=== PATIENT | male | born 1940 | race Caucasian/White ===

== ENCOUNTER 2018-12-22 01:54 | Outpatient (CLI) | payer MEDICARE, OTHER, SELFPAY ==
[2018-12-22 11:13] LABS: ALT 28 U/L (12-78); AST 16 U/L (15-37); Albumin 4.1 g/dL (3.4-5.0); Alkaline Phosphatase 95 U/L (46-116); BUN 13 mg/dL (7-18); Bilirubin, Total 0.7 mg/dL (0.2-1.0); CREATININE 1.55 mg/dL (0.70-1.30); Calcium 9.1 mg/dL (8.5-10.1); Chloride 104 mmol/L (98-107); Cholesterol 196 mg/dL (50-200); Estimated GFR 43.81 (mL/min/1.73m2); Glucose 101 mg/dL (70-100); HDL Cholesterol 39 mg/dL (40-60); LDL CHOLESTEROL 110 mg/dL (<100); Potassium 4.2 mmol/L (3.5-5.1); Sodium 141 mmol/L (136-145); Total Protein 7.5 g/dL (6.4-8.2); Triglyceride 302 mg/dL (30-150)
== END 2018-12-22 02:14 ==
PROVIDERS: PCP Family Medicine; Visit Provider Family Medicine
DX: E78.5 Hyperlipidemia, unspecified (principal)
CPT/HCPCS: 36415; 80053; 80061; 83721

== ENCOUNTER 2019-01-06 00:25 | Outpatient (CLI) | payer MEDICARE, OTHER, SELFPAY ==
[2019-01-06 14:19] LABS: CREATININE 1.55 mg/dL (0.70-1.30); Estimated GFR 43.81 (mL/min/1.73m2)
--- NOTE | 2019-01-06 15:50 | DI.US_ITS ---
SYMPTOM/DIAGNOSIS: TIA, G45.9, DIZZINESS, SYNCOPE, SMOKER BILATERAL DUPLEX CAROTID ULTRASOUND: Duplex evaluation of the carotid circulation was performed according to the usual protocol. There is mild visible atheromatous plaque in the carotid bifurcations. There is normal flow velocity in common, internal and external carotid arteries bilaterally. There is bilateral antegrade vertebral flow. CONCLUSION: No evidence of a hemodynamically significant carotid stenosis.
--- NOTE | 2019-01-06 16:05 | DI.CT_ITS ---
SYMPTOM/;DIAGNOSIS: SLURRED SPEECH, TIA, R47.81, DIZZINESS CRANIAL CT: Cranial CT was performed prior to and following intravenous infusion of 50 cc's of Omnipaque 350. There is mild generalized cerebral atrophy. There is no evidence of acute intracranial hemorrhage, mass effect or midline shift. Post contrast examination shows no evidence of an intracranial mass lesion or enhancing lesion and shows unremarkable appearance of the [place] vasculature as visualized. Paranasal sinuses and mastoid air cells are well aerated. Orbital and temporal bone structures appear intact. CONCLUSION: Negative cranial CT for age.
[2019-01-06] MEDS: Omnipaque 350 MG/ML 100 ML BTL 50 ML IJ (16:06)
== END 2019-01-06 00:45 ==
PROVIDERS: PCP Family Medicine; Visit Provider Family Medicine
DX: R47.81 Slurred speech (principal); R42 Dizziness and giddiness; G31.1 Senile degeneration of brain, not elsewhere classified
CPT/HCPCS: 70470; 82565; 93880; J3490

== ENCOUNTER 2019-01-12 00:30 | Outpatient (CLI) | payer MEDICARE, OTHER, SELFPAY ==
--- NOTE | 2019-01-12 07:30 | MERGE_ITS ---
*[facility]* *[facility]* [address] [place] [address] Date of study: 01/12/2019 Transthoracic Echocardiography M-mode, complete 2D, complete spectral Doppler, and color Doppler *STUDY CONCLUSIONS* Summary: 1. Left ventricle: The cavity size was normal. Wall thickness was increased in a pattern of mild LVH. Systolic function was normal. The estimated ejection fraction was 60-65%. Wall motion was normal; there were no regional wall motion abnormalities. 2. Aortic valve: Calcification. Moderate focal calcification involving the noncoronary cusp. There was no stenosis. There was trivial regurgitation. 3. Mitral valve: There was mild regurgitation. 4. Right ventricle: The cavity size was normal. Wall thickness was normal. Systolic function was normal. 5. Atrial septum: No defect or patent foramen ovale was identified. Agitated saline contrast study showed no atrial level shunt, at baseline or with provocation. *PATIENT PRESENTATION* Height: 172.7cm ((68in) ) S/D Pressure: 126 / 65 Weight: 72.6kg ((159.7lb) ) BSA: 1.87m^2 Test start time: 07:30 AM. Test stop time: 07:50 AM. PERFORMING Unknown ORDERING Araceli Reyes REFERRING Araceli Reyes PERFORMING [facility] RN CCU RT Giselle (R)(CT), RADHA *PROCEDURE DATA* Procedure information: The patient was identified by two identifiers. This study was interpreted by [facility]. Pertinent images and digital data are archived for permanent storage and are available for subsequent review. No prior study was available for comparison. Study status: Routine. Transthoracic echocardiography. M-mode, complete 2D, complete spectral Doppler, and color Doppler. A Transthoracic Echocardiogram was performed. Scanning was performed from the parasternal, apical, subcostal, and suprasternal notch acoustic windows. Images were obtained using an [id number] cardiac ultrasound machine. Image quality was adequate. A 20 gauge IV was inserted by FREDDY Duncan. Intravenous contrast (normal saline) was administered. A total amount of 30ml of saline was used. The saline was administered by FREDDY Duncan . Study completion: The patient tolerated the procedure well. There were no complications. History: PMH: TIA G45.9 *CARDIAC ANATOMY* Left ventricle: The cavity size was normal. Wall thickness was increased in a pattern of mild LVH. Systolic function was normal. The estimated ejection fraction was 60-65%. Wall motion was normal; there were no regional wall motion abnormalities. Findings consistent with diastolic dysfunction. Aortic valve: Trileaflet; mildly thickened, mildly calcified leaflets. Calcification. Moderate focal calcification involving the noncoronary cusp. Mobility was not restricted. Doppler: Transvalvular velocity was within the normal range. There was no stenosis. There was trivial regurgitation. VTI ratio of LVOT to aortic valve: 0.84. Valve area (VTI): 2.8cm^2. Indexed valve area (VTI): 1.5cm^2/m^2. Peak velocity ratio of LVOT to aortic valve: 0.72. Valve area (Vmax): 2.4cm^2. Indexed valve area (Vmax): 1.3cm^2/m^2. Mean velocity ratio of LVOT to aortic valve: 0.78. Valve area (Vmean): 2.6cm^2. Indexed valve area (Vmean): 1.4cm^2/m^2. Mean gradient (S): 4.5mm Hg. Peak gradient (S): 8.6mm Hg. Aorta: Aortic root: The aortic root was at upper normal limits. Ascending aorta: The ascending aorta was normal in size. Mitral valve: Mildly thickened leaflets. Mobility was not restricted. Doppler: Transvalvular velocity was within the normal range. There was no evidence for stenosis. There was mild regurgitation. Valve area by pressure half-time: 3cm^2. Indexed valve area by pressure half-time: 1.6cm^2/m^2. Peak gradient (D): 3mm Hg. Left atrium: The atrium was normal in size. Atrial septum: No defect or patent foramen ovale was identified. Agitated saline contrast study showed no atrial level shunt, at baseline or with provocation. Right ventricle: The cavity size was normal. Wall thickness was normal. Systolic function was normal. Pulmonic valve: Structurally normal valve. Doppler: Transvalvular velocity was within the normal range. There was no evidence for stenosis. There was trivial regurgitation. Peak gradient (S): 3.1mm Hg. Tricuspid valve: Structurally normal valve. Doppler: Transvalvular velocity was within the normal range. There was no evidence for stenosis. There was trivial regurgitation. Pulmonary artery: Pulmonary systolic pressure was within the normal range. Right atrium: The atrium was normal in size. Pericardium: There was no pericardial effusion. Systemic veins: Inferior vena cava: Well visualized. The vessel was patent and normal in size. The respirophasic diameter changes were in the normal range (greater than or equal to 50%). Baseline ECG: Normal sinus rhythm. Measurements Left ventricle Value Reference LV ID, ED, PLAX 4.0 cm 3.5 - 6.0 LV ID, ES, PLAX 2.4 cm 2.1 - 4.0 LV PW thickness, ED, PLAX 1.1 cm LV end-diastolic volume, 1-p A2C 79 ml LV ejection fraction, 1-p A2C 72 % LV end-diastolic volume, 1-p A4C 62 ml LV ejection fraction, 1-p A4C 59 % LV e', lateral 0.037 m/sec LV E/e', lateral 24 LV e', medial 0.044 m/sec LV E/e', medial 20 LV e', average 0.04 m/sec LV E/e', average 22 Ventricular septum Value Reference IVS thickness, ED, PLAX 1.2 cm LVOT Value Reference LVOT ID, A-P 2.1 cm LVOT area 3.3 cm^2 LVOT peak velocity, S 1.06 m/sec LVOT mean velocity, S 0.77 m/sec LVOT VTI, S 25.3 cm LVOT peak gradient, S 4.5 mm Hg LVOT mean gradient, S 2.7 mm Hg Stroke volume (SV), LVOT DP 84 ml Stroke index (SV/bsa), LVOT DP 45 ml/m^2 Aortic valve Value Reference Aortic valve peak velocity, S 1.5 m/sec Aortic valve mean velocity, S 1 m/sec Aortic valve VTI, S 30.0 cm Aortic mean gradient, S 4.5 mm Hg Aortic peak gradient, S 8.6 mm Hg VTI ratio, LVOT/AV 0.84 Aortic valve area, VTI 2.8 cm^2 Velocity ratio, peak, LVOT/AV 0.72 Aortic valve area, peak velocity 2.4 cm^2 Velocity ratio, mean, LVOT/AV 0.78 Aortic valve area, mean velocity 2.6 cm^2 Aortic valve area/bsa, mean velocity 1.4 cm^2/m^2 Aorta Value Reference Aortic root ID, ED 3.7 cm Ascending aorta ID, A-P, S 3.5 cm Left atrium Value Reference LA ID, A-P, ES 3.6 cm LA ID/bsa, A-P 1.9 cm/m^2 <=2.2 LA area, ES, A4C 17.1 cm^2 8.8 - 23.4 LA area, ES, A2C 17 cm^2 LA volume/bsa, ES, 1-p A4C 28 ml/m^2 LA volume, ES, 2-p 47 ml LA volume/bsa, ES, 2-p 25 ml/m^2 LA/aortic root ratio 0.96 Mitral valve Value Reference Mitral E-wave peak velocity 0.87 m/sec Mitral A-wave peak velocity 0.96 m/sec Mitral deceleration time (H) 255 ms 150 - 230 Mitral pressure half-time 74 ms Mitral peak gradient, D 3 mm Hg Mitral E/A ratio, peak 0.9 Mitral valve area, PHT, DP 3 cm^2 Pulmonary veins Value Reference Pulmonary vein peak velocity, S 0.71 m/sec Pulmonary vein peak velocity, D 0.56 m/sec Pulmonary vein velocity ratio, peak, 1.27 S/D Pulmonary vein A-wave reversal peak 0.29 m/sec velocity Pulmonary vein A-wave reversal 127 ms duration Tricuspid valve Value Reference Tricuspid regurg peak velocity 2.4 m/sec Tricuspid peak RV-RA gradient 23.9 mm Hg Right atrium Value Reference RA area, ES, A4C 18.8 cm^2 8.3 - 19.5 Pulmonic valve Value Reference Pulmonic peak gradient, S 3.1 mm Hg Legend: (L) and (H) fahad values outside specified reference range. I have personally reviewed the images and have reviewed and edited the reported findings. Electronically signed by Elver Ireland 01/12/2019 17:13
[2019-01-12] MEDS: Normal Saline Flush 10 ML SYR 30 ML IVP (14:28)
== END 2019-01-12 00:50 ==
PROVIDERS: PCP Family Medicine; Visit Provider Family Medicine
DX: I08.0 Rheumatic disorders of both mitral and aortic valves (principal); R47.81 Slurred speech; R42 Dizziness and giddiness; G45.9 Transient cerebral ischemic attack, unspecified
CPT/HCPCS: 93306

== ENCOUNTER 2019-01-25 02:31 | Outpatient (CLI) | payer MEDICARE, OTHER, SELFPAY ==
--- NOTE | 2019-02-15 11:28 | ZIOP_ITS ---
ZIO PATCH MONITOR DATE OF DICTATION February 15, [address] 13 days, 1 hour. January 25 - December 08, 2018. INTERPRETATION Baseline rhythm sinus. Rare single PAC. 8 bursts of SVT, longest 15-beat duration, fastest 152 beats per minute. No atrial f ibrillation. Rare single PVC. Rare couplet. No VT. No bradycardia or block. SYMPTOMS 2 triggered events, both current during sinus rhythm. 86-106 beats per minute. 1 symptomatic event. Confusion, lightheaded, dizziness noted once during sinus rhythm, 81 beats per m inute. Average heart rate sinus, 81 beats per minute, range 48-148 beats per minute. Nishant Turner M.D. NI/dominick T - 02/15/2019
== END 2019-01-25 02:51 ==
PROVIDERS: PCP Family Medicine; Visit Provider Family Medicine
DX: G45.9 Transient cerebral ischemic attack, unspecified (principal); I47.1 Supraventricular tachycardia; I49.1 Atrial premature depolarization; I49.3 Ventricular premature depolarization
CPT/HCPCS: 0296T

== ENCOUNTER 2019-02-15 09:30 | Outpatient (CLI) | payer MEDICARE, OTHER, SELFPAY | END 2019-02-15 09:50 | PROVIDERS: PCP Family Medicine; Referring Provider Family Medicine; Visit Provider Internal Medicine Interventional Cardiology | DX: G45.9 Transient cerebral ischemic attack, unspecified (principal); I47.1 Supraventricular tachycardia; I49.1 Atrial premature depolarization; I49.3 Ventricular premature depolarization | CPT/HCPCS: 0298T ==

== ENCOUNTER 2019-03-02 01:40 | Outpatient (CLI) | payer MEDICARE, OTHER, SELFPAY ==
--- NOTE | 2019-03-02 14:41 | DI.MRI_ITS ---
SYMPTOMS/DIAGNOSIS: RECURRENT TRANSIENT ISCHEMIC ATTACKS ON ASA, Z86.83, G45.9 MR ANGIOGRAPHY, [place]: BRAIN MRI: MRI examination of the brain was performed according to the usual protocol. There is mild generalized cerebral atrophy. There are areas of abnormal signal in periventricular white matter and to a lesser degree the jeronimo consistent with microvascular ischemic change. There are small bilateral lacunar infarcts. No other significant signal abnormality identified in the brain. The orbital and temporal bone structures appear intact, as does the pituitary. There is normal flow void in the [place] vasculature. Diffusion weighted imaging is within normal limits with no evidence of infarct. Susceptibility weighted imaging shows no evidence of intracranial hemorrhage. CONCLUSION: Cerebral atrophy and microvascular ischemic changes of periventricular white matter and pontine white matter. No other significant abnormality seen. MRA BRAIN: The distal internal carotid arteries are unremarkable without evidence of aneurysm, occlusion or significant stenosis. The anterior cerebral arteries are unremarkable without evidence of aneurysm, occlusion or significant stenosis. The middle cerebral arteries are unremarkable without evidence of aneurysm, occlusion or significant stenosis. The posterior cerebral arteries are unremarkable without evidence of aneurysm, occlusion or significant stenosis. The visualized portions of the distal vertebral arteries and basilar artery are unremarkable without evidence of occlusion, aneurysm or significant stenosis. IMPRESSION: Unremarkable MR angiography of the brain.
== END 2019-03-02 02:00 ==
PROVIDERS: PCP Family Medicine; Visit Provider Family Medicine
DX: Z86.73 Personal history of transient ischemic attack (TIA), and cerebral infarction without residual deficits (principal); G45.9 Transient cerebral ischemic attack, unspecified; Z79.82 Long term (current) use of aspirin; G31.1 Senile degeneration of brain, not elsewhere classified; R90.82 White matter disease, unspecified
CPT/HCPCS: 70544; 70551

== ENCOUNTER 2019-03-15 02:17 | Outpatient (CLI) | payer MEDICARE, OTHER, SELFPAY ==
--- NOTE | 2019-04-05 12:02 | ZIOP_ITS ---
DATE OF DICTATION: April 05, 2019 ENROLLMENT: 03/15/19 until 03/28/19 DIAGNOSIS: Transient cerebral ischemic event. PRESCRIBING PHYSICIAN: Araceli Reyes M.D. FINDINGS: 1. Baseline sinus rhythm 52-150 bpm, average 76 bpm. 2. Rare PVC, < 1%, one 7-beat non-sustained VT run, average 155 bpm, maximally 203 bpm. 3. Rare PAC, < 1%, eight SVT runs, fastest 7 beats at 179 bpm, longest 9 beats at 99 bpm. No AF. 4. No bradycardia or pauses. 5. No triggered or symptom events recorded.
== END 2019-03-15 02:37 ==
PROVIDERS: PCP Family Medicine; Visit Provider Family Medicine
DX: G45.9 Transient cerebral ischemic attack, unspecified (principal); I47.2 Ventricular tachycardia; I47.1 Supraventricular tachycardia
CPT/HCPCS: 0296T

== ENCOUNTER → 2019-04-07 10:08 | Outpatient (BNVA) | payer MEDICARE, OTHER, SELFPAY | PROVIDERS: PCP Family Medicine; Referring Provider Family Medicine; Visit Provider Psychiatry & Neurology Neurology | DX: R40.4 Transient alteration of awareness (principal); R68.89 Other general symptoms and signs; R51 Headache | CPT/HCPCS: 99205; 99215 ==

== ENCOUNTER 2019-05-03 01:48 | Outpatient (CLI) | payer MEDICARE, OTHER, SELFPAY ==
--- NOTE | 2019-05-06 15:40 | PDOC.EEG_ITS ---
EEG: [facility] Department of Neurology LONG-TERM AMBULATORY EEG REPORT Date of Recordin05/03/19 at 14:50:22 to 05/06/19at 10:19:55 Interpreting Physician: Dr. Andar Dooley PCP/Referring Provider: Dr. Fatoumata Reyes Reason for study: Mr. 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 Current Medications: Home Medications Medication Instructions Recorded Confirmed Type aspirin [Aspir 81] 81 mg PO DAILY 12/11/12 04/07/19 History diphenhydramine-acetaminophen 1 ea PO HS PRN PRN 10/30/16 04/07/19 History [Tylenol Pm Ex-Strength Caplet] fluocinolone 15 gm TOPICAL BID PRN #1 script 01/17/17 04/07/19 History fluocinonide-emollient [Lidex-E 1 applic TOPICAL QID #60 gm 12/29/17 04/07/19 History 0.05% Cream] paroxetine HCl [Paxil] 20 mg PO DAILY #90 tab 05/04/18 04/07/19 Rx omeprazole 20 mg capsule,delayed 20 mg PO DAILY #90 tab-cap 11/23/18 04/07/19 Rx release sildenafil 100 mg tablet 100 mg PO PRN #12 tab-cap 12/31/18 04/07/19 Rx simvastatin 80 mg tablet 80 mg PO QHS #90 tab 03/01/19 04/07/19 Rx clopidogrel 75 mg tablet 75 mg PO DAILY #90 tab 03/15/19 04/07/19 Rx METHODS: An 18-channel digitized electroencephalogram was recorded in the ambulatory setting with video. The 10/20 international system of electrode placement was used and bipolar and referential electrode montages were recorded. In addition to EEG the patient was monitored for EKG and by video. Activation procedures of photic stimulation and hyperventilation were performed if applicable. The duration of the recording was ~66 hours. DESCRIPTION OF EEG: Waking background activity: During maximal wakefulness a 9-Hz posterior background rhythm was present which was well-modulated, symmetrical, reactive to eye opening, and of moderate voltage. Faster frequencies were present in the bilateral anterior head regions. There was a normal anterior-posterior voltage gradient. Drowsy and sleeping background activity: During drowsiness, there was attenuation of the posterior dominant background rhythm and vertex waves. Normal stage II and III sleep was present with symmetrical sleep spindles, K- complexes, and vertex waves with slowing of the background rhythm to delta/theta frequencies. REM sleep manifested by rapid lateral eye movements and faster background rhythms was recorded. Arousal was unremarkable. He had frequent nocturnal arousals/awakenings. Interictal abnormalities: none. Ictal findings: No events recorded. Activating Procedures: Photic stimulation was performed which produced a symmetrical posterior driving response at various flash frequencies. Hyperventilation was not performed. EKG: EKG revealed normal sinus rhythm. INTERPRETATION: This long-term EEG is normal during the awake and sleep states as well as during the activation procedures. He had frequent nocturnal arousals. No events were captured. PRIOR EEG: none CLINICAL CORRELATION: No focal regions of cerebral dysfunction or epileptiform activity was present. The frequent nocturnal arousals could be indicative of a sleep disorder. Epilepsy remains a clinical diagnosis and a normal EEG does not rule out epi lepsy. Clinical correlation is advised. Andra Dooley MD
== END 2019-05-03 02:08 ==
PROVIDERS: PCP Family Medicine; Visit Provider Psychiatry & Neurology Neurology
DX: R41.89 Other symptoms and signs involving cognitive functions and awareness (principal); R40.4 Transient alteration of awareness; Z86.73 Personal history of transient ischemic attack (TIA), and cerebral infarction without residual deficits
CPT/HCPCS: 95951; 95953

== ENCOUNTER 2019-06-07 01:05 | Outpatient (CLI) | payer MEDICARE, OTHER, SELFPAY ==
[2019-06-07 10:36] LABS: HCT 44.9 % (40.0-50.0); HGB 15.2 g/dL (13.5-17.5); Mean Corp. HGB Concentration 33.9 g/dL (32.0-36.0); Mean Corpuscular Hemoglobin 31.5 pg (27.0-33.0); Mean Corpuscular Volume 93.2 fL (80-95); Mean Platelet Volume 10.2 fL (8.0-11.0); Platelet Count 279 x1000/uL (130-400); RBC 4.82 m/cumm (4.50-6.00); RBC Distribution Width 13.1 % (11.8-14.1); White Blood Cell Count 8.11 k/cumm (4.4-10.8)
[2019-06-07 11:31] LABS: ALT 28 U/L (16-63); AST 18 U/L (15-37); Albumin 4.3 g/dL (3.4-5.0); Alkaline Phosphatase 97 U/L (46-116); Anion Gap 8.2 mmol/L (3-11); BUN 15 mg/dL (7-18); Bilirubin, Total 0.8 mg/dL (0.2-1.0); CO2 26.8 mmol/L (21.0-32.0); CREATININE 1.64 mg/dL (0.70-1.30); Calcium 9.2 mg/dL (8.5-10.1); Calculated LDL 90 mg/dL; Chloride 103 mmol/L (98-107); Cholesterol 192 mg/dL (50-200); Estimated GFR 41.05 (mL/min/1.73m2); Glucose 101 mg/dL (70-100); HDL Cholesterol 38 mg/dL (40-60); Magnesium 2.3 mg/dL (1.8-2.4); Potassium 4.7 mmol/L (3.5-5.1); Sodium 138 mmol/L (136-145); Total Protein 7.6 g/dL (6.4-8.2); Triglyceride 322 mg/dL (30-150)
== END 2019-06-07 01:25 ==
PROVIDERS: PCP Family Medicine; Visit Provider Family Medicine
DX: E78.5 Hyperlipidemia, unspecified (principal); E83.42 Hypomagnesemia; K21.9 Gastro-esophageal reflux disease without esophagitis
CPT/HCPCS: 36415; 80053; 80061; 85027; 83735

== ENCOUNTER 2019-12-07 08:49 | Outpatient (CLI) | payer MEDICARE, OTHER, SELFPAY ==
[2019-12-07 12:48] LABS: ALT 27 U/L (16-63); AST 21 U/L (15-37); Albumin 4.4 g/dL (3.4-5.0); Alkaline Phosphatase 128 U/L (46-116); Anion Gap 12.5 mmol/L (3-11); BUN 17 mg/dL (7-18); Bilirubin, Total 0.6 mg/dL (0.2-1.0); CO2 24.5 mmol/L (21.0-32.0); CREATININE 1.73 mg/dL (0.70-1.30); Chloride 104 mmol/L (98-107); Estimated GFR 38.49 (mL/min/1.73m2); Glucose 126 mg/dL (74-106); Potassium 4.1 mmol/L (3.5-5.1); Sodium 141 mmol/L (136-145); Total Protein 7.8 g/dL (6.4-8.2)
== END 2019-12-07 09:09 ==
PROVIDERS: PCP Family Medicine; Visit Provider Family Medicine
DX: R74.8 Abnormal levels of other serum enzymes (principal); K21.9 Gastro-esophageal reflux disease without esophagitis
CPT/HCPCS: 36415; 80053; 83915

== ENCOUNTER 2020-02-09 02:58 | Outpatient (CLI) | payer MEDICARE, OTHER, SELFPAY ==
[2020-02-09 10:13] LABS: Bilirubin Negative (Negative); Blood Negative (Negative); Clarity Clear (Clear); Glucose Negative (Negative); Ketones Negative (Negative); Leukocyte Esterase Negative (Negative); Nitrite Negative (Negative); Urobilinogen 0.2 EU/dL (Up TO 0.2); pH 5.5 (5-8)
[2020-02-09 11:04] LABS: Anion Gap 7.6 mmol/L (3-11); BUN 16 mg/dL (7-18); CO2 27.4 mmol/L (21.0-32.0); CREATININE 1.61 mg/dL (0.70-1.30); Chloride 103 mmol/L (98-107); Estimated GFR 41.82 (mL/min/1.73m2); Glucose 97 mg/dL (74-106); Potassium 3.9 mmol/L (3.5-5.1); Sodium 138 mmol/L (136-145)
== END 2020-02-09 03:18 ==
PROVIDERS: PCP Family Medicine; Visit Provider Family Medicine
DX: N18.9 Chronic kidney disease, unspecified (principal); R73.9 Hyperglycemia, unspecified
CPT/HCPCS: 36415; 80048; 81003

== ENCOUNTER 2020-12-15 03:13 | Outpatient (CLI) | payer MEDICARE, OTHER, SELFPAY ==
[2020-12-15 12:07] LABS: Anion Gap 9.2 mmol/L (3-11); BUN 17 mg/dL (7-18); CO2 27.8 mmol/L (21.0-32.0); CREATININE 1.5 mg/dL (0.70-1.30); Calcium 9.4 mg/dL (8.5-10.1); Chloride 105 mmol/L (98-107); Estimated GFR 45.26 (mL/min/1.73m2); Glucose 104 mg/dL (74-106); Potassium 4.8 mmol/L (3.5-5.1); Sodium 142 mmol/L (136-145)
== END 2020-12-15 03:14 | disposition home or self-care (01) ==
LOC: LBO 03:14
PROVIDERS: Family Medicine; PCP Family Medicine; Visit Provider Family Medicine
DX: E87.1 Hypo-osmolality and hyponatremia (principal)
CPT/HCPCS: 36415; 80048

== ENCOUNTER 2021-12-21 03:48 | Outpatient (CLI) | payer MEDICARE, SELFPAY ==
[2021-12-21 13:58] LABS: ALT 23 U/L (16-63); Anion Gap 8.8 mmol/L (3-11); BUN 14 mg/dL (7-18); CO2 26.2 mmol/L (21.0-32.0); CREATININE 1.5 mg/dL (0.70-1.30); Calcium 8.7 mg/dL (8.5-10.1); Calculated LDL 85 mg/dL (<100); Chloride 106 mmol/L (98-107); Cholesterol 159 mg/dL (<200); Estimated GFR 45.14 (mL/min/1.73m2); Glucose 97 mg/dL (74-106); HDL Cholesterol 39 mg/dL (40-60); Potassium 4.8 mmol/L (3.5-5.1); Sodium 141 mmol/L (136-145); Triglyceride 175 mg/dL (<150)
== END 2021-12-21 03:49 | disposition home or self-care (01) ==
LOC: LBO 03:48
PROVIDERS: PCP Family Medicine; Visit Provider Family Medicine
DX: E78.5 Hyperlipidemia, unspecified (principal); N18.9 Chronic kidney disease, unspecified
CPT/HCPCS: 36415; 80048; 80061; 84460

== ENCOUNTER 2022-12-18 03:24 | Outpatient (CLI) | payer MEDICARE, SELFPAY ==
[2022-12-18 12:49] LABS: ALT 22 U/L (16-63); Anion Gap 8.5 mmol/L (3-11); BUN 20 mg/dL (7-18); CO2 26.5 mmol/L (21.0-32.0); CREATININE 1.8 mg/dL (0.70-1.30); Calcium 9.1 mg/dL (8.5-10.1); Calculated LDL 90 mg/dL (<100); Chloride 105 mmol/L (98-107); Cholesterol 183 mg/dL (<200); Estimated GFR 37.58 (mL/min/1.73m2); Glucose 114 mg/dL (74-106); HDL Cholesterol 44 mg/dL (40-60); Potassium 4.4 mmol/L (3.5-5.1); Sodium 140 mmol/L (136-145); Triglyceride 248 mg/dL (<150)
== END 2022-12-18 03:25 | disposition home or self-care (01) ==
LOC: LOS 03:25
PROVIDERS: PCP Nurse Practitioner Family; Visit Provider Family Medicine
DX: E78.5 Hyperlipidemia, unspecified (principal); N18.9 Chronic kidney disease, unspecified
CPT/HCPCS: 36415; 80048; 80061; 84460

== ENCOUNTER 2023-12-19 01:57 | Outpatient (CLI) | payer MEDICARE, SELFPAY ==
[2023-12-19 09:59] LABS: ALT 22 U/L (16-63); AST 17 U/L (15-37); Albumin 4.4 g/dL (3.4-5.0); Alkaline Phosphatase 110 U/L (46-116); BUN 18 mg/dL (7-18); Bilirubin, Total 0.7 mg/dL (0.2-1.0); CREATININE 1.7 mg/dL (0.70-1.30); Calcium 9.1 mg/dL (8.5-10.1); Calculated LDL 87 mg/dL (<100); Chloride 106 mmol/L (98-107); Cholesterol 179 mg/dL (<200); Glucose 113 mg/dL (74-106); HDL Cholesterol 43 mg/dL (40-60); Potassium 3.7 mmol/L (3.5-5.1); Sodium 144 mmol/L (136-145); Total Protein 8.1 g/dL (6.4-8.2); Triglyceride 245 mg/dL (<150)
== END 2023-12-19 01:58 | disposition home or self-care (01) ==
LOC: LBO 01:57
PROVIDERS: PCP Nurse Practitioner Family; Visit Provider Nurse Practitioner Family
DX: N18.9 Chronic kidney disease, unspecified (principal); E78.5 Hyperlipidemia, unspecified
CPT/HCPCS: 36415; 80053; 80061

== ENCOUNTER 2024-02-13 02:00 | Outpatient (CLI) | payer MEDICARE, SELFPAY ==
[2024-02-16 11:44] LABS: PSA, Screening 4.5 ng/mL (<=6.5)
== END 2024-02-13 02:01 | disposition home or self-care (01) ==
LOC: LBO 02:00
PROVIDERS: PCP Nurse Practitioner Family; Visit Provider Nurse Practitioner Family
DX: R35.1 Nocturia (principal); Z12.5 Encounter for screening for malignant neoplasm of prostate
CPT/HCPCS: 36415; 84153

== ENCOUNTER → 2024-06-10 10:24 | Outpatient (BNVA) | payer MEDICARE, SELFPAY | PROVIDERS: PCP Nurse Practitioner Family; Referring Provider Nurse Practitioner Family; Visit Provider Urology | DX: N39.41 Urge incontinence (principal) | CPT/HCPCS: 99213 ==

== ENCOUNTER → 2024-08-03 14:22 | Outpatient (BNVA) | payer MEDICARE, SELFPAY | PROVIDERS: PCP Nurse Practitioner Family; Referring Provider Nurse Practitioner Family; Visit Provider Urology | DX: N40.1 Benign prostatic hyperplasia with lower urinary tract symptoms (principal); N39.41 Urge incontinence | CPT/HCPCS: 99214 ==

== ENCOUNTER → 2024-10-26 14:17 | Outpatient (BNVA) | payer MEDICARE, SELFPAY | PROVIDERS: PCP Nurse Practitioner Family; Referring Provider Nurse Practitioner Family; Visit Provider Urology | DX: N40.1 Benign prostatic hyperplasia with lower urinary tract symptoms (principal); R35.0 Frequency of micturition; N39.41 Urge incontinence | CPT/HCPCS: 99213 ==

== ENCOUNTER 2024-11-25 13:06 | Outpatient (CLI) | payer MEDICARE, SELFPAY ==
[2024-11-25 12:11] LABS: HCT 40.5 % (40.0-50.0); HGB 13.4 g/dL (13.5-17.5); MCH 31.8 pg (27.0-33.0); MCHC 33.1 % (32.0-36.0); MCV 96 fL (80-95); MPV 10.7 fL (8.0-11.0); Platelet Count 228 10^3/uL (130-400); RBC 4.22 10^6/uL (4.36-5.78); RDW 12.4 % (11.8-14.1); RDW-SD 43.6 fL
[2024-11-25 12:25] LABS: ALT 34 U/L (16-63); AST 21 U/L (15-37); Albumin 4.4 g/dL (3.4-5.0); Alkaline Phosphatase 98 U/L (46-116); Anion Gap 10.9 mmol/L (3-11); BUN 20 mg/dL (7-18); Bilirubin, Total 0.64 mg/dL (0.2-1.0); CO2 26.1 mmol/L (21.0-32.0); CREATININE 1.8 mg/dL (0.70-1.30); Calcium 9.4 mg/dL (8.5-10.1); Chloride 106 mmol/L (98-107); Estimated GFR 37.12 (mL/min/1.73m2); Glucose 110 mg/dL (74-106); Potassium 4.3 mmol/L (3.5-5.1); Sodium 143 mmol/L (136-145); Total Protein 7.8 g/dL (6.4-8.2)
== END 2024-11-25 13:07 | disposition home or self-care (01) ==
LOC: LBO 13:06
PROVIDERS: PCP Nurse Practitioner Family; Visit Provider Nurse Practitioner Family
DX: R53.1 Weakness (principal); R30.0 Dysuria
CPT/HCPCS: 36415; 80053; 85027

== ENCOUNTER → 2025-03-23 14:25 | Outpatient (BNVA) | payer MEDICARE, SELFPAY | PROVIDERS: PCP Nurse Practitioner Family; Referring Provider Nurse Practitioner Family; Visit Provider Psychiatry & Neurology Neurology | DX: G20.A1 Parkinson's disease without dyskinesia, without mention of fluctuations (principal); R41.3 Other amnesia | CPT/HCPCS: 99214 ==

== ENCOUNTER → 2025-05-02 14:40 | Outpatient (BNVA) | payer MEDICARE, SELFPAY | PROVIDERS: PCP Nurse Practitioner Family; Referring Provider Nurse Practitioner Family; Visit Provider Psychiatry & Neurology Neurology | DX: G20.A1 Parkinson's disease without dyskinesia, without mention of fluctuations (principal); R41.3 Other amnesia; N18.9 Chronic kidney disease, unspecified | CPT/HCPCS: 99214 ==

== ENCOUNTER → 2025-08-01 14:41 | Outpatient (BNVA) | payer MEDICARE, SELFPAY | PROVIDERS: PCP Nurse Practitioner Family; Referring Provider Nurse Practitioner Family; Visit Provider Psychiatry & Neurology Neurology | DX: G20.A1 Parkinson's disease without dyskinesia, without mention of fluctuations (principal); R41.3 Other amnesia; N18.9 Chronic kidney disease, unspecified | CPT/HCPCS: 99214 ==